=== PATIENT | male | born 1940 | race Caucasian/White ===

== ENCOUNTER → 2017-10-24 06:54 | Outpatient (CLI) | payer OTHER, SELFPAY ==
[2017-10-24 09:01] LABS: Alanine Aminotransferase 32 IU/L (21-72); Albumin 4.6 g/dL (3.5-5.0); Albumin Globulin Ratio 1.4 (1.0-2.8); Alkaline Phosphatase 61 U/L (38-126); Aspartate Aminotransferase 27 IU/L (17-59); BUN Creatinine Ratio 23.6 (6-22); Bilirubin Total 0.6 mg/dL (0.2-1.3); Blood Urea Nitrogen 26 mg/dL (9-20); Calcium 9.8 mg/dL (8.4-10.2); Carbon Dioxide 32 mmol/L (22-32); Chloride 103 mmol/L (98-107); Estimated Glomerular Filt Rate > 60.0 mL/min (>60); Globulin 3.3 g/dL (1.7-4.1); Glucose 112 mg/dL (80-110); HEMOLYSIS < 15 (0-50); Potassium 4.2 mmol/L (3.4-5.1); Sodium 144 mmol/L (137-145); Total Protein 7.9 g/dL (6.3-8.2)
[2017-10-24 09:33] LABS: TSH w/ Reflex to FT4 4.38 uIU/mL (0.47-4.68)
[2017-10-27 09:23] LABS: Lipoprofile NMR SEE SEPERATE REPORT
== END ==
PROVIDERS: PCP Internal Medicine; Visit Provider Specialist
DX: I25.10 Atherosclerotic heart disease of native coronary artery without angina pectoris (principal); E78.5 Hyperlipidemia, unspecified; I10 Essential (primary) hypertension; R20.0 Anesthesia of skin; E03.9 Hypothyroidism, unspecified; K40.90 Unilateral inguinal hernia, without obstruction or gangrene, not specified as recurrent; Z12.5 Encounter for screening for malignant neoplasm of prostate
CPT/HCPCS: 36415; 80053; 83704; 84153; 84443; G0103

== ENCOUNTER → 2017-12-21 09:34 | Outpatient (CLI) | payer OTHER, SELFPAY ==
--- NOTE | 2017-12-21 09:35 | DI.RAD.S_ITS ---
PROCEDURE: XR CHEST 2V INDICATIONS: COUGH TECHNIQUE: 2 views of the chest were acquired. COMPARISON: [facility], , XR CXR 2 VIEW, 12/31/2003, 18:09. FINDINGS: Surgical changes and devices: None. Lungs and pleura: No pleural effusions or pneumothorax. Lungs are clear, aside from multiple calcified bilateral granulomas similar to prior chest radiograph dated 12/31/2003. There is prominent chondrocalcification involving both the right and left anterior first ribs also unchanged.. Mediastinum: Mediastinal contours are normal. Heart size is normal. Bones and chest wall: No suspicious bony abnormalities. Soft tissues appear unremarkable. IMPRESSION: 1. Remote granulomatous changes redemonstrated and prominent costochondral calcification involving the first anterior ribs bilaterally which also is unchanged from prior examination. No source for cough is identified. Dictated by: Alan West [facility] Interpreted: Vladimir Zafar MD on 12/21/2017 at 10:00 Approved by: Vladimir Zafar M.D. on 12/21/2017 at 12:18
== END ==
PROVIDERS: PCP Family Medicine; Visit Provider Family Medicine
DX: R05 Cough (principal)
CPT/HCPCS: 71046

== ENCOUNTER → 2018-09-25 06:57 | Outpatient (CLI) | payer OTHER, SELFPAY ==
[2018-09-25 09:32] LABS: Alanine Aminotransferase 27 IU/L (21-72); Albumin 4.4 g/dL (3.5-5.0); Albumin Globulin Ratio 1.3 (1.0-2.8); Alkaline Phosphatase 67 U/L (38-126); Aspartate Aminotransferase 34 IU/L (17-59); BUN Creatinine Ratio 24.4 (6-22); Bilirubin Total 0.8 mg/dL (0.2-1.3); Blood Urea Nitrogen 22 mg/dL (9-20); Calcium 9.6 mg/dL (8.4-10.2); Carbon Dioxide 30 mmol/L (22-32); Chloride 106 mmol/L (98-107); Estimated Glomerular Filt Rate > 60.0 mL/min (>60); Globulin 3.4 g/dL (1.7-4.1); Glucose 102 mg/dL (80-110); HEMOLYSIS < 15 (0-50); Potassium 4.1 mmol/L (3.4-5.1); Sodium 143 mmol/L (137-145); Total Protein 7.8 g/dL (6.3-8.2)
[2018-09-25 09:57] LABS: Prostate Specific Antigen Scrn 1.37 ng/mL (0.1-4.0)
[2018-09-25 09:58] LABS: Thyroid Stimulating Hormone 4.23 uIU/mL (0.47-4.68)
[2018-09-27 08:31] LABS: Lipoprofile NMR SEE SEPERATE REPORT
== END ==
PROVIDERS: Family Provider Family Medicine; PCP Family Medicine; Visit Provider Specialist
DX: E78.2 Mixed hyperlipidemia (principal); Z12.5 Encounter for screening for malignant neoplasm of prostate; E03.9 Hypothyroidism, unspecified; E78.5 Hyperlipidemia, unspecified
CPT/HCPCS: 36415; 80053; 83704; 84443; G0103

== ENCOUNTER → 2019-11-26 07:10 | Outpatient (CLI) | payer OTHER, SELFPAY ==
[2019-11-26 08:05] LABS: Alanine Aminotransferase 33 IU/L (<50); Albumin 4.6 g/dL (3.5-5.0); Albumin Globulin Ratio 1.2 (1.0-2.8); Alkaline Phosphatase 75 U/L (38-126); Aspartate Aminotransferase 34 IU/L (17-59); Bilirubin Total 0.8 mg/dL (0.2-1.3); Blood Urea Nitrogen 25 mg/dL (9-20); Calcium 9.9 mg/dL (8.4-10.2); Carbon Dioxide 29 mmol/L (22-32); Chloride 105 mmol/L (98-107); Estimated Glomerular Filt Rate > 60.0 mL/min (>60); Globulin 3.7 g/dL (1.7-4.1); Glucose 121 mg/dL (80-110); HEMOLYSIS < 15 (0-50); Potassium 4.3 mmol/L (3.4-5.1); Sodium 141 mmol/L (137-145); Total Protein 8.3 g/dL (6.3-8.2)
[2019-11-26 08:21] LABS: Vitamin D 25 Hydroxy (D3) 45.2 ng/mL (30.0-100.0)
[2019-11-26 08:35] LABS: Prostate Specific Antigen Scrn 1.42 ng/mL (0.1-4.0)
[2019-11-26 08:36] LABS: TSH w/ Reflex to FT4 6.48 uIU/mL (0.47-4.68)
[2019-11-26 09:19] LABS: Free T4, Direct Thyroxine 0.98 ng/dL (0.78-2.19)
[2019-11-28 09:36] LABS: Cholesterol, Total 123 mg/dL (100-199); HDL-Cholesterol 43 mg/dL (>39); HDL-Particle (Total) 33.5 umol/L (>=30.5); Historical Reading Comment: (.); LDL Particle 551 nmol/L (<1000); LDL Size 20.5 nm (>20.5); LDL-Cholsterol 53 mg/dL (0-99); LP-IR Score 43 (<=45); Small LDL- Particle 185 nmol/L (<=527); Triglycerides 135 mg/dL (0-149)
== END ==
PROVIDERS: Family Provider Family Medicine; PCP Family Medicine; Referring Provider Specialist; Visit Provider Specialist
DX: E78.2 Mixed hyperlipidemia (principal); E03.9 Hypothyroidism, unspecified; Z12.5 Encounter for screening for malignant neoplasm of prostate; Z13.21 Encounter for screening for nutritional disorder
CPT/HCPCS: 36415; 80053; 80061; 82306; 83704; 84439; 84443; G0103

== ENCOUNTER → 2019-12-18 10:25 | Outpatient (CLI) | payer OTHER, SELFPAY ==
[2019-12-18 11:55] LABS: Hemoglobin A1C% w Est Avg Glu 5.7 % (4.0-6.0)
== END ==
PROVIDERS: Family Provider Family Medicine; PCP Family Medicine; Referring Provider Family Medicine; Visit Provider Family Medicine
DX: R73.9 Hyperglycemia, unspecified (principal)
CPT/HCPCS: 36415; 83036

== ENCOUNTER 2020-09-25 21:55 | Emergency (ER) | payer OTHER, SELFPAY ==
[2020-09-25 22:05] VITALS: BP 185/86; PULSE 70; O2SAT 97
[2020-09-25 22:07] VITALS: BP 185/86; PULSE 70; RESP 12; TEMP 37; O2SAT 96; BMI 22.7
--- NOTE | 2020-09-25 22:09 | DI.RAD.S_ITS ---
PROCEDURE: XR CHEST 1V INDICATIONS: chest pain TECHNIQUE: One view of the chest was acquired. COMPARISON: [facility], CR, XR CHEST 2V, 12/21/2017, 9:14. FINDINGS: Surgical changes and devices: None. Lungs and pleura: Lungs are clear of acute opacities. Calcified granulomas are stable compared to the prior exams.. No pleural effusions or pneumothorax. Mediastinum: Mediastinal contours appear normal. Heart size is normal. Bones and chest wall: No suspicious bony lesions. Overlying soft tissues appear unremarkable. IMPRESSION: No acute cardiopulmonary disease process. Dictated by: Ligia Lorenzo MD, PhD on 09/26/2020 at 9:52 Approved by: Ligia Lorenzo MD, PhD on 09/26/2020 at 9:56
[2020-09-25 22:34] LABS: Add Manual Diff / Slide Review NO; Basophils Absolute Auto 100 /uL (0-100); Basophils Percent Auto 1.3 % (0-2); Eosinophils Absolute Auto 1000 /uL (0-450); Eosinophils Percent Auto 10.8 % (2-4); Hematocrit 45.9 % (41-53); Hemoglobin 15.9 g/dL (13.5-17.5); Lymphocytes Absolute Auto 3600 /uL (1100-4500); Lymphocytes Percent Auto 39.6 % (25-40); Mean Corpuscular HGB Conc 34.7 % (30-36); Mean Corpuscular Hemoglobin 32.9 PG (26-34); Mean Corpuscular Volume 94.7 fL (80-100); Monocytes Absolute Auto 800 /uL (0-900); Monocytes Percent Auto 8.4 % (3-14); Neutrophils Absolute Auto 3600 /uL (1500-7000); Neutrophils Percent Auto 39.9 % (50-75); Platelet Count 250 X10^3/uL (150-400); Red Blood Cell Count 4.84 X10^6/uL (4.5-5.9); White Blood Cell Count 9.1 X10^3/uL (4.5-11.0)
[2020-09-25 22:35] LABS: Alanine Aminotransferase 33 IU/L (<50); Albumin 4.2 g/dL (3.5-5.0); Albumin Globulin Ratio 1.4 (1.0-2.8); Alkaline Phosphatase 52 U/L (38-126); Aspartate Aminotransferase 39 IU/L (17-59); BUN Creatinine Ratio 22.7 (6-22); Bilirubin Total 0.4 mg/dL (0.2-1.3); Blood Urea Nitrogen 20 mg/dL (9-20); Calcium 9.2 mg/dL (8.4-10.2); Carbon Dioxide 29 mmol/L (22-32); Chloride 106 mmol/L (98-107); Creatine Kinase 110 U/L (55-170); Estimated Glomerular Filt Rate > 60.0 mL/min (>60); Globulin 3.1 g/dL (1.7-4.1); Glucose 114 mg/dL (80-110); Lipase 86 U/L (23-300); Sodium 142 mmol/L (137-145); Total Protein 7.3 g/dL (6.3-8.2)
[2020-09-25 22:42] LABS: Potassium 3.9 mmol/L (3.4-5.1)
[2020-09-25 22:47] LABS: Troponin I < 0.012 ng/mL (0.01-0.034)
[2020-09-25 22:50] LABS: CKMB % Relative Index 1.5 % (1.5-5.0); Creatine Kinase MB 1.67 ng/mL (<2.37)
[2020-09-25 22:53] LABS: HEMOLYSIS 49 (0-50)
[2020-09-25 22:55] VITALS: BP 171/79; PULSE 65; RESP 19; O2SAT 95
[2020-09-25 22:59] VITALS: BP 171/79; PULSE 67; RESP 12; O2SAT 98
[2020-09-25 23:00] VITALS: BP 150/71; PULSE 65; RESP 13; O2SAT 94
[2020-09-26] VITALS: BP 152/74; PULSE 64; RESP 15; O2SAT 94
[2020-09-26 01:00] VITALS: BP 168/75; PULSE 64; RESP 13; O2SAT 96
--- NOTE | 2020-09-26 01:27 | ED_ITS ---
HPI - General Adult General Chief complaint: Dizziness Stated complaint: dizzy, sweats, irregular heartbeats Time Seen by Provider: 09/26/20 01:27 Source: patient Mode of arrival: Ambulatory History of Present Illness HPI narrative: 80-year-old gentleman with a history of hypertension, coronary artery disease post stenting, hypothyroidism who presents with an episode of significant vertigo while he was watching TV at 9:30 a.m. this evening. I was associated with diaphoresis and he has a electronic watch that he uses to keep track of his heart rhythms he noted increased PVCs and quite a bit of artifact. He had increasing weakness and then the episode resolved fairly quickly. He states he has a similar episode of vertigo a number of years ago. The symptoms that he had that led to eventual stenting of coronary arteries were a mild burning center chest without any dizziness. He denies any fevers, cough, chills. He describes no significant abdominal pain constipation, diarrhea or dysuria. Related Data Home Medications Medication Instructions Recorded Confirmed aspirin 81 mg tablet,delayed 81 mg PO DAILY 12/21/17 12/25/18 release cholecalciferol (vitamin D3) 25 1,000 unit PO DAILY 12/21/17 12/25/18 mcg (1,000 unit) capsule cyanocobalamin (vitamin B-12) 1,000 mcg PO DAILY 12/21/17 12/25/18 1,000 mcg tablet metoprolol tartrate 25 mg tablet 12.5 mg PO .qd tab 12/21/17 12/25/18 [id number] acid 0.4 1 tab PO DAILY 12/21/17 12/25/18 mg-lycopene 300 mcg-lutein 250 mcg tablet simvastatin 40 mg tablet 40 mg PO BEDTIME 12/21/17 12/25/18 Previous Rx's Medication Instructions Recorded omega-3 fatty acids 1,000 mg 1,000 mg PO DAILY #90 cap 12/21/17 capsule levothyroxine 25 mcg tablet 25 mcg PO DAILY #90 tab 12/17/19 Allergies Allergy/AdvReac Type Severity Reaction Status Date / Time crab AdvReac Severe vomiting Verified 09/25/20 22:09 Review of Systems Review of Systems Narrative: Remainder of complete review of systems is otherwise unremarkable except for that included in the HPI. Patient History Medical History Chronic cough Coronary artery disease (~2010) Gall stones (~2015) Hearing loss Hemorrhoid (~1979) Hyperlipidemia (~1995) Hypothyroidism (~2011) Measles Mumps Skin cancer (~2010) Tinnitus (~1989) Vertigo (~1985) Vision disorder Surgical History H/O angioplasty History of hernia repair (~2016) History of sinus surgery Family History Father No problems noted. Mother Stroke Brother Heart disease Sister No problems noted. Grandfather No problems noted. Social History marital status: household members: spouse lives independently: Yes occupational status: other (retired 1995, customer service analyst/automotive generator repairer) Smoking Status: Former smoker Tobacco: How many years used: 6 alcohol intake: never substance use type: does not use Smoking Status: Former smoker Substance Use Type: does not use Exam Narrative Exam Narrative: General: Healthy appearing, in no acute distress. Able to give a complete and coherent history. Well-nourished well-developed HEENT: Moist mucous membranes, normal sclera with reactive pupils, tympanic membranes are pearly ledesma bilaterally Neck: supple Respiratory: Lungs are clear to auscultation, no wheezing no rales no rhonchi. Full and symmetrical air movement Cardiac: Regular rate and rhythm no murmurs no bruits Abdomen: Soft, nontender, good bowel tones, no flank pain Skin: Warm and dry, no rashes Neurologic: Grossly neurologically intact with no obvious asymmetries or abnormalities Extremities: No trauma, well perfused Psych: Cooperative, appropriate insight and affect Initial Vital Signs Initial Vital Signs: Vital Signs Pulse Rate 70 09/25/20 22:05 Blood Pressure 185/86 H 09/25/20 22:05 Pulse Oximetry 97 09/25/20 22:05 Course Orders Ordered: ED Orders 09/25/20 22:09 XR chest 1V Stat EKG-12 Lead Stat 09/25/20 22:18 Complete Blood Count AUTO DIFF Stat Comprehensive Metabolic Panel Stat Lipase Stat Troponin & CK Cardiac Panel Stat 09/26/20 01:40 Troponin I Stat Vital Signs Vital signs: Vital Signs - 8 hr 09/25/20 22:07 09/25/20 22:59 Temperature 98.6 F Pulse Rate 70 67 Respiratory Rate 12 12 Blood Pressure 185/86 H 171/79 H Pulse Oximetry 96 98 Medical Decision Making Medical Records Medical records reviewed: Yes I reviewed the patient's medical records. Lab Data Lab results reviewed: Yes I reviewed the patient's lab results. Result diagrams: 09/25/20 22:18 09/25/20 22:18 Labs: Lab Results 09/25/20 09/25/20 09/26/20 Range/Units 22:18 22:18 01:40 WBC 9.1 (4.5-11.0) X10^3/uL RBC 4.84 (4.5-5.9) X10^6/uL Hgb 15.9 (13.5-17.5) g/dL Hct 45.9 (41-53) % MCV 94.7 (80-100) fL MCH 32.9 (26-34) PG MCHC 34.7 (30-36) % RDW 14.0 (11.6-14.8) % Plt Count 250 (150-400) X10^3/uL Neut % (Auto) 39.9 L (50-75) % Lymph % (Auto) 39.6 (25-40) % [place] % (Auto) 8.4 (3-14) % Eos % (Auto) 10.8 H (2-4) % Baso % (Auto) 1.3 (0-2) % Neut # (Auto) 3600 (9216-6449) /uL Lymph # (Auto) 3600 (8398-3271) /uL [place] # (Auto) 800 (0-900) /uL Eos # (Auto) 1000 H (0-450) /uL Baso # (Auto) 100 (0-100) /uL Sodium 142 (137-145) mmol/L Potassium 3.9 (3.4-5.1) mmol/L Chloride 106 (98-107) mmol/L Carbon Dioxide 29 (22-32) mmol/L BUN 20 (9-20) mg/dL Creatinine 0.88 (0.66-1.25) mg/dL Estimated GFR > 60.0 (>60) mL/min BUN/Creatinine Ratio 22.7 H (6-22) Glucose 114 H (80-110) mg/dL Calcium 9.2 (8.4-10.2) mg/dL Total Bilirubin 0.4 (0.2-1.3) mg/dL AST 39 (17-59) IU/L ALT 33 (<50) IU/L Alkaline Phosphatase 52 (38-126) U/L Total Creatine Kinase 110 (55-170) U/L CK-MB (CK-2) 1.67 (<2.37) ng/mL CK-MB (CK-2) Rel Index 1.5 (1.5-5.0) % Troponin I < 0.012 < 0.012 (0.01-0.034) ng/mL Total Protein 7.3 (6.3-8.2) g/dL Albumin 4.2 (3.5-5.0) g/dL Globulin 3.1 (1.7-4.1) g/dL Albumin/Globulin Ratio 1.4 (1.0-2.8) Lipase 86 (23-300) U/L ECG Data Interpretation: Sinus rhythm at a rate of 64 Normal axis, normal intervals No acute ischemic changes MDM Narrative Medical decision making narrative: 80-year-old gentleman with an episode of acute vertigo lasting approximately half an hour associated with diaphoresis and increased PVCs. Symptoms are entirely resolved at this point. There is no clinical evidence of stroke. EKG is unremarkable and troponin x2 is equally reassuring. There is no sign of infection or electrolyte abnormalities. At this point I do not have a reason to justify hospitalization and the patient fe els well. Questions are answered and he is discharged home. Discharge Plan Departure Patient Disposition: Home Clinical Impression: Vertigo Instructions: DI for Dizziness-Nonvertigo Activity Restrictions/Additional Instructions: Thank you for coming in today Your workup was reassuring. There is no evidence of acute stroke, heart attack or heart attack like syndrome, no infection and no dehydration or kidney abnormalities. Please continue all of your usual medications. If you have any recurrent symptoms or changing issues, please return to the ER and I am happy to re-evaluate. Prescriptions: No Action levothyroxine 25 mcg tablet 25 mcg PO DAILY Qty: 90 RF: 3 simvastatin 40 mg tablet 40 mg PO BEDTIME RF: 0 metoprolol tartrate 25 mg tablet 12.5 mg PO .qd RF: 0 omega-3 fatty acids [Fish Oil Concentrate] 1,000 mg capsule 1,000 mg PO DAILY Qty: 90 RF: 0 cyanocobalamin (vitamin B-12) [Vitamin B-12] 1,000 mcg tablet 1,000 mcg PO DAILY RF: 0 aspirin [Adult Low Dose Aspirin] 81 mg tablet,delayed release (DR/EC) 81 mg PO DAILY RF: 0 cholecalciferol (vitamin D3) 1,000 unit capsule 1,000 unit PO DAILY RF: 0 uainatlg-sqe-UW-lycopen-lutein [Centrum Silver] 0.4-300-250 mg-mcg-mcg tablet 1 tab PO DAILY RF: 0 Referrals: Teri Rodriguez DO [Primary Care Provider] -
[2020-09-26 01:30] VITALS: BP 163/87; PULSE 75; RESP 35; O2SAT 95
[2020-09-26 02:00] VITALS: BP 168/81; PULSE 64; RESP 34; O2SAT 95
[2020-09-26 02:14] LABS: Troponin I < 0.012 ng/mL (0.01-0.034)
[2020-09-26 02:30] VITALS: BP 142/73; PULSE 61; RESP 15; O2SAT 96
== END 2020-09-26 03:06 | disposition home or self-care (01) ==
PROVIDERS: Emergency Provider Emergency Medicine; Family Provider Family Medicine; PCP Family Medicine
DX: R42 Dizziness and giddiness (principal); R53.1 Weakness; R07.9 Chest pain, unspecified
CPT/HCPCS: 36415; 71045; 80053; 82550; 82553; 83690; 84484; 85025; 93005; 93010; 99283; 99284

== ENCOUNTER → 2020-10-27 06:51 | Outpatient (CLI) | payer OTHER, SELFPAY ==
[2020-10-27 08:31] LABS: Alanine Aminotransferase 30 IU/L (<50); Albumin 4.2 g/dL (3.5-5.0); Albumin Globulin Ratio 1.3 (1.0-2.8); Alkaline Phosphatase 65 U/L (38-126); Aspartate Aminotransferase 32 IU/L (17-59); BUN Creatinine Ratio 25.8 (6-22); Bilirubin Total 0.6 mg/dL (0.2-1.3); Blood Urea Nitrogen 24 mg/dL (9-20); Calcium 9.5 mg/dL (8.4-10.2); Carbon Dioxide 28 mmol/L (22-32); Chloride 105 mmol/L (98-107); Cholesterol 114 mg/dL (140-199); Estimated Glomerular Filt Rate > 60.0 mL/min (>60); Globulin 3.3 g/dL (1.7-4.1); Glucose 113 mg/dL (80-110); HDL Cholesterol 41 mg/dL (40-60); HEMOLYSIS < 15 (0-50); LDL Cholesterol Calculated 43 mg/dL (<100); Potassium 3.7 mmol/L (3.4-5.1); Sodium 140 mmol/L (137-145); Total Protein 7.5 g/dL (6.3-8.2); Triglycerides 149 mg/dL (35-150)
[2020-10-27 08:59] LABS: TSH w/ Reflex to FT4 3.92 uIU/mL (0.47-4.68)
== END ==
PROVIDERS: Family Provider Family Medicine; PCP Family Medicine; Referring Provider Specialist; Visit Provider Specialist
DX: I10 Essential (primary) hypertension (principal); I49.3 Ventricular premature depolarization; E78.00 Pure hypercholesterolemia, unspecified; E03.9 Hypothyroidism, unspecified
CPT/HCPCS: 36415; 80053; 80061; 83735; 84443

== ENCOUNTER → 2021-02-13 08:43 | Outpatient (CLI) | payer MEDICARE, SELFPAY ==
[2021-02-13] MEDS: COVID-19 VACC #3, MRNA(MOD) 50 MCG/0.25 ML VIAL IM (08:47)
== END ==
PROVIDERS: Family Provider Family Medicine; PCP Family Medicine; Visit Provider Internal Medicine
DX: Z23 Encounter for immunization (principal)
CPT/HCPCS: 0013A; 91301

== ENCOUNTER → 2021-10-26 06:56 | Outpatient (CLI) | payer OTHER, SELFPAY ==
[2021-10-26 08:15] LABS: Alanine Aminotransferase 26 IU/L (<50); Albumin 4.3 g/dL (3.5-5.0); Albumin Globulin Ratio 1.5 (1.0-2.8); Alkaline Phosphatase 59 U/L (38-126); Aspartate Aminotransferase 28 IU/L (17-59); BUN Creatinine Ratio 26.1 (6-22); Bilirubin Total 0.5 mg/dL (0.2-1.3); Blood Urea Nitrogen 23 mg/dL (9-20); Calcium 9.3 mg/dL (8.4-10.2); Carbon Dioxide 24 mmol/L (22-32); Chloride 106 mmol/L (98-107); Estimated Glomerular Filt Rate > 60 mL/min (>60); Globulin 2.9 g/dL (1.7-4.1); Glucose 114 mg/dL (80-110); HEMOLYSIS < 15 (0-50); Potassium 4.5 mmol/L (3.4-5.1); Sodium 141 mmol/L (137-145); Total Protein 7.2 g/dL (6.3-8.2)
[2021-10-29 08:35] LABS: Cholesterol, Total 105 mg/dL (100-199); HDL-Cholesterol 44 mg/dL (>39); HDL-Particle (Total) 32.5 umol/L (>=30.5); LDL Particle 644 nmol/L (<1000); LDL Size 20.1 nm (>20.5); LDL-Cholsterol 44 mg/dL (0-99); LP-IR Score 47 (<=45); Small LDL- Particle 334 nmol/L (<=527); Triglycerides 89 mg/dL (0-149)
== END ==
PROVIDERS: Family Provider Family Medicine; PCP Family Medicine; Referring Provider Specialist; Visit Provider Specialist
DX: I10 Essential (primary) hypertension (principal); E78.00 Pure hypercholesterolemia, unspecified
CPT/HCPCS: 36415; 80053; 80061; 83704; 83735

== ENCOUNTER → 2022-01-26 10:18 | Outpatient (CLI) | payer OTHER, SELFPAY ==
[2022-01-26 12:48] LABS: Add Manual Diff / Slide Review NO; Basophils Absolute Auto 100 /uL (0-100); Basophils Percent Auto 0.6 % (0-2); Eosinophils Absolute Auto 400 /uL (0-450); Eosinophils Percent Auto 4.2 % (2-4); Hematocrit 45.9 % (41-53); Hemoglobin 16.2 g/dL (13.5-17.5); Lymphocytes Absolute Auto 2200 /uL (1100-4500); Lymphocytes Percent Auto 22.8 % (25-40); Mean Corpuscular HGB Conc 35.3 % (30-36); Mean Corpuscular Hemoglobin 33.3 PG (26-34); Mean Corpuscular Volume 94.4 fL (80-100); Monocytes Absolute Auto 700 /uL (0-900); Monocytes Percent Auto 6.7 % (3-14); Neutrophils Absolute Auto 6500 /uL (1500-7000); Neutrophils Percent Auto 65.7 % (50-75); Platelet Count 238 X10^3/uL (150-400); Red Blood Cell Count 4.86 X10^6/uL (4.5-5.9); Red Cell Distribution Width 13.5 % (11.6-14.8); White Blood Cell Count 9.9 X10^3/uL (4.5-11.0)
[2022-01-26 12:58] LABS: Alanine Aminotransferase 37 IU/L (<50); Albumin 4.4 g/dL (3.5-5.0); Albumin Globulin Ratio 1.3 (1.0-2.8); Alkaline Phosphatase 60 U/L (38-126); Aspartate Aminotransferase 36 IU/L (17-59); BUN Creatinine Ratio 30.3 (6-22); Bilirubin Total 0.4 mg/dL (0.2-1.3); Blood Urea Nitrogen 27 mg/dL (9-20); Calcium 9.5 mg/dL (8.4-10.2); Carbon Dioxide 28 mmol/L (22-32); Chloride 104 mmol/L (98-107); Estimated Glomerular Filt Rate > 60 mL/min (>60); Globulin 3.5 g/dL (1.7-4.1); Glucose 132 mg/dL (80-110); HEMOLYSIS 18 (0-50); Potassium 5.1 mmol/L (3.4-5.1); Sodium 144 mmol/L (137-145); Total Protein 7.9 g/dL (6.3-8.2)
[2022-01-26 13:34] LABS: TSH w/ Reflex to FT4 3.25 uIU/mL (0.47-4.68)
== END ==
PROVIDERS: Family Provider Family Medicine; PCP Family Medicine; Referring Provider Family Medicine; Visit Provider Family Medicine
DX: R10.9 Unspecified abdominal pain (principal); E03.9 Hypothyroidism, unspecified
CPT/HCPCS: 36415; 80053; 84443; 85025

== ENCOUNTER → 2022-02-04 08:57 | Outpatient (CLI) | payer OTHER, SELFPAY ==
--- NOTE | 2022-02-04 08:58 | DI.CT.S_ITS ---
PROCEDURE: CT ABDOMEN PELVIS W CON INDICATIONS: change in stool caliber, weight loss TECHNIQUE: After the administration of oral and IV contrast, axial sections were acquired from the lung bases to the pubic symphysis. Coronal and sagittal reformats were performed. For radiation dose reduction, the following was used: automated exposure control, adjustment of mA and/or kV according to patient size. COMPARISON: [facility], CT, ABDOMEN/PELVIS WITH CONTRAST, 09/09/2015, 22:16. CT, KIDNEY/ URETER/BLADDER, 10/08/2014, 2:59. FINDINGS: Image quality: Excellent. Lung bases: There are calcified granulomas in lung bases. Heart: No significant findings. ABDOMEN: Liver: A calcific focus in liver is compatible with an old granuloma. Moderate hepatic steatosis. Gallbladder: Unremarkable. Biliary ducts: Unremarkable. Pancreas: Unremarkable. Spleen: Multiple calcified granulomas in spleen.. Adrenal Glands: Unremarkable. Kidneys and Ureters: Unremarkable. Stomach and Bowel: Stomach, small bowel loops, and colon are normal in caliber. Diverticulosis without diverticulitis. Peritoneum: No abnormal intraperitoneal fluid. No free air. Ventral Wall: No hernia. Abdominal Nodes: No retroperitoneal or mesenteric adenopathy by size criteria. Vessels: Aorta and inferior vena cava are normal in size. PELVIS: Pelvic Organs: Prostate is enlarged. Bladder: Unremarkable. Pelvic Nodes: No enlarged lymph nodes. Miscellaneous: No inguinal hernias are seen. Bones: Unremarkable. IMPRESSION: 1. No acute abnormalities in abdomen or pelvis. Please consider colonoscopy in light of clinical symptoms. 2. Diverticulosis without diverticulitis. 3. Remote granulomatous disease in both in spleen and liver, as well as lungs. 4. Hepatic steatosis. 5. Enlarged prostate. Dictated by: Luis Fontaine M.D. on 02/04/2022 at 17:18 Approved by: Luis Fontaine M.D. on 02/04/2022 at 17:25
== END ==
PROVIDERS: Family Provider Family Medicine; PCP Family Medicine; Referring Provider Family Medicine; Visit Provider Family Medicine
DX: R19.5 Other fecal abnormalities (principal); K57.90 Diverticulosis of intestine, part unspecified, without perforation or abscess without bleeding; K76.0 Fatty (change of) liver, not elsewhere classified; N40.0 Benign prostatic hyperplasia without lower urinary tract symptoms; D71 Functional disorders of polymorphonuclear neutrophils
CPT/HCPCS: 74177; Q9967

== ENCOUNTER → 2022-03-31 06:48 | Outpatient (CLI) | payer OTHER, SELFPAY ==
[2022-03-31 08:35] LABS: BUN Creatinine Ratio 26.7 (6-22); Blood Urea Nitrogen 24 mg/dL (9-20); Calcium 9.2 mg/dL (8.4-10.2); Carbon Dioxide 25 mmol/L (22-32); Chloride 104 mmol/L (98-107); Estimated Glomerular Filt Rate > 60 mL/min (>60); Glucose 110 mg/dL (80-110); HEMOLYSIS < 15 (0-50); Potassium 4.3 mmol/L (3.4-5.1); Sodium 140 mmol/L (137-145)
[2022-04-01 10:22] LABS: PSA Free % 39.3 % (.); PSA, Total 1.4 ng/mL (0.0-4.0)
== END ==
PROVIDERS: Family Provider Family Medicine; PCP Family Medicine; Referring Provider Family Medicine; Visit Provider Family Medicine
DX: N40.0 Benign prostatic hyperplasia without lower urinary tract symptoms (principal); I10 Essential (primary) hypertension
CPT/HCPCS: 36415; 80048; 84153; 84154

== ENCOUNTER → 2022-10-25 08:01 | Outpatient (CLI) | payer OTHER, SELFPAY ==
[2022-10-25 10:44] LABS: Alanine Aminotransferase 32 IU/L (<50); Albumin 4.3 g/dL (3.5-5.0); Albumin Globulin Ratio 1.5 (1.0-2.8); Alkaline Phosphatase 64 U/L (38-126); Aspartate Aminotransferase 29 IU/L (17-59); BUN Creatinine Ratio 19.6 (6-22); Bilirubin Total 0.7 mg/dL (0.2-1.3); Blood Urea Nitrogen 20 mg/dL (9-20); Calcium 9.4 mg/dL (8.4-10.2); Carbon Dioxide 30 mmol/L (22-32); Chloride 104 mmol/L (98-107); Cholesterol 117 mg/dL (140-199); Estimated Glomerular Filt Rate > 60 mL/min (>60); Globulin 2.9 g/dL (1.7-4.1); Glucose 111 mg/dL (80-110); HDL Cholesterol 42 mg/dL (40-60); HEMOLYSIS < 15 (0-50); LDL Cholesterol Calculated 51 mg/dL (<100); Potassium 4.2 mmol/L (3.4-5.1); Sodium 140 mmol/L (137-145); Total Protein 7.2 g/dL (6.3-8.2); Triglycerides 119 mg/dL (35-150)
== END ==
PROVIDERS: Family Provider Family Medicine; PCP Family Medicine; Referring Provider Specialist; Visit Provider Specialist
DX: E78.00 Pure hypercholesterolemia, unspecified (principal)
CPT/HCPCS: 36415; 80053; 80061

== ENCOUNTER → 2023-07-26 10:49 | Outpatient (CLI) | payer OTHER, SELFPAY ==
[2023-07-26 12:17] LABS: Influenza A - CEPHEID Flu A NEGATIVE (NEGATIVE); Influenza B - CEPHEID Flu B NEGATIVE (NEGATIVE); Respiratory Syncytial Virus Negative (Negative)
[2023-07-26 12:18] LABS: COVID-19 CEPHEID 4-PLEX PCR Negative (Negative)
== END ==
PROVIDERS: Family Provider Family Medicine; PCP Student in an Organized Health Care Education/Training Program; Visit Provider Physician Assistant
DX: R30.0 Dysuria (principal); U07.1 COVID-19
CPT/HCPCS: 0241U; 87077; 87086; 87186

== ENCOUNTER → 2023-08-21 14:47 | Outpatient (CLI) | payer OTHER, SELFPAY | PROVIDERS: Family Provider Family Medicine; PCP Student in an Organized Health Care Education/Training Program; Visit Provider Physician Assistant Medical | DX: R10.9 Unspecified abdominal pain (principal) | CPT/HCPCS: 87077; 87086; 87186 ==

== ENCOUNTER → 2023-09-16 10:02 | Outpatient (CLI) | payer OTHER, SELFPAY ==
[2023-09-16 11:11] LABS: Appearance Urine UA CLEAR; Bilirubin Urine UA NEGATIVE (NEGATIVE); Color Urine UA YELLOW; Glucose Urine UA NEGATIVE (Negative); Ketones Urine UA NEGATIVE (NEGATIVE); Leukocyte Esterase Urine UA 1+ (NEGATIVE); Nitrite Urine UA POSITIVE (Negative); Occult Blood Urine UA TRACE-INTACT (Negative); Protein Urine UA NEGATIVE (Negative); Urobilinogen Urine UA 0.2 E.U./dL (0.2); pH Urine UA 5.5 (4.5-8.0)
[2023-09-16 11:20] LABS: Bacteria Urine Many (>30); RBC Urine 1-5/HPF (0-5/HPF); Squamous Epithelial Cell Urine 0-1 /HPF (0-5/HPF); Urine Volume 10mL (spun); WBC Urine 30-100/HPF (0-5/HPF)
== END ==
PROVIDERS: Family Provider Family Medicine; PCP Student in an Organized Health Care Education/Training Program; Visit Provider Student in an Organized Health Care Education/Training Program
DX: N39.0 Urinary tract infection, site not specified (principal)
CPT/HCPCS: 81001; 87077; 87086; 87186

== ENCOUNTER → 2023-09-16 10:33 | Outpatient (CLI) | payer OTHER, SELFPAY ==
--- NOTE | 2023-09-16 10:35 | DI.CT.S_ITS ---
PROCEDURE: CT KIDNEY URETER BLADDER (KUB) INDICATIONS: STONE PROTOCOL TECHNIQUE: Axial sections were acquired from the lung bases to the pubic symphysis. Coronal and sagittal reformats were performed. For radiation dose reduction, the following was used: automated exposure control, adjustment of mA and/or kV according to patient size. COMPARISON: [facility], CT, KIDNEY/ URETER/BLADDER, 10/08/2014, 2:59. FINDINGS: Image quality: Diagnostic. Lower Chest: Calcified granuloma. URINARY: Right Kidney: No stones or hydronephrosis. Right Ureter: No hydroureter. Left Kidney: No stones or hydronephrosis. Left Ureter: No hydroureter. Bladder: Normal wall thickness. No stones. ABDOMEN: Liver: No contour-deforming solid mass. Calcified granuloma. Gallbladder: Cholelithiasis without wall thickening or adjacent fat stranding to suggest acute cholecystitis. Biliary ducts: No biliary dilation. Pancreas: No ductal dilation. Spleen: Size is within normal limits. Calcified granuloma. Adrenal Glands: No adrenal nodules. Stomach and Bowel: Normal colonic caliber, without significant wall thickening. Colonic diverticulosis without evidence of diverticulitis. Normal appendix. Peritoneum: No abnormal intraperitoneal fluid. No free air. Ventral Wall: No hernia. Abdominal Nodes: No enlarged retroperitoneal or mesenteric lymph nodes. Vessels: Aorta and inferior vena cava are normal in size. PELVIS: Pelvic Organs: Unremarkable. Pelvic Nodes: Unremarkable. Miscellaneous: No inguinal hernias are seen. Bones: Moderate spinal canal narrowing at L2-3 due to disc herniation and facet hypertrophy. IMPRESSION: No obstructing stones or hydronephrosis. Cholelithiasis without wall thickening or adjacent fat stranding to suggest acute cholecystitis. Colonic diverticulosis without evidence of diverticulitis. Normal appendix. Sequela of granulomatous disease. Moderate spinal canal narrowing at L2-3 due to disc herniation and facet hypertrophy. Dictated by: Pietro George M.D. on 09/16/2023 at 11:02 Approved by: Pietro George M.D. on 09/16/2023 at 11:04
[2023-09-16 13:25] LABS: Add Manual Diff / Slide Review NO; Basophils Absolute Auto 100 /uL (0-100); Basophils Percent Auto 0.5 % (0-2); Eosinophils Absolute Auto 200 /uL (0-450); Eosinophils Percent Auto 2.2 % (2-4); Hematocrit 47.5 % (41-53); Hemoglobin 16.4 g/dL (13.5-17.5); Lymphocytes Absolute Auto 2300 /uL (1100-4500); Lymphocytes Percent Auto 21.7 % (25-40); Mean Corpuscular HGB Conc 34.5 % (30-36); Mean Corpuscular Hemoglobin 32.6 PG (26-34); Mean Corpuscular Volume 94.4 fL (80-100); Monocytes Absolute Auto 900 /uL (0-900); Monocytes Percent Auto 8.3 % (3-14); Neutrophils Absolute Auto 7100 /uL (1500-7000); Neutrophils Percent Auto 67.3 % (50-75); Platelet Count 330 X10^3/uL (150-400); Red Blood Cell Count 5.03 X10^6/uL (4.5-5.9); Red Cell Distribution Width 13.9 % (11.6-14.8); White Blood Cell Count 10.6 X10^3/uL (4.5-11.0)
[2023-09-16 13:38] LABS: Alanine Aminotransferase 30 IU/L (<50); Albumin 4.6 g/dL (3.5-5.0); Albumin Globulin Ratio 1.5 (1.0-2.8); Alkaline Phosphatase 74 U/L (38-126); Aspartate Aminotransferase 33 IU/L (17-59); BUN Creatinine Ratio 26.7 (6-22); Bilirubin Total 0.5 mg/dL (0.2-1.3); Blood Urea Nitrogen 24 mg/dL (9-20); Calcium 9.9 mg/dL (8.4-10.2); Carbon Dioxide 29 mmol/L (22-32); Chloride 106 mmol/L (98-107); Estimated Glomerular Filt Rate > 60 mL/min (>60); Glucose 127 mg/dL (80-110); HEMOLYSIS < 15 (0-50); Potassium 5.2 mmol/L (3.4-5.1); Sodium 142 mmol/L (137-145); Total Protein 7.6 g/dL (6.3-8.2)
[2023-09-16 14:07] LABS: Prostate Specific Antigen 3.64 ng/mL (0.10-4.00)
== END ==
PROVIDERS: Family Provider Family Medicine; PCP Student in an Organized Health Care Education/Training Program; Referring Provider Student in an Organized Health Care Education/Training Program; Visit Provider Student in an Organized Health Care Education/Training Program
DX: N39.0 Urinary tract infection, site not specified (principal); R31.9 Hematuria, unspecified; R10.9 Unspecified abdominal pain; K80.20 Calculus of gallbladder without cholecystitis without obstruction; K57.90 Diverticulosis of intestine, part unspecified, without perforation or abscess without bleeding; M48.061 Spinal stenosis, lumbar region without neurogenic claudication; M51.36 Other intervertebral disc degeneration, lumbar region; M47.816 Spondylosis without myelopathy or radiculopathy, lumbar region
CPT/HCPCS: 36415; 74176; 80053; 81001; 84153; 85025; 87077; 87086; 87186

== ENCOUNTER → 2023-10-12 06:54 | Outpatient (CLI) | payer OTHER, SELFPAY ==
[2023-10-16 13:36] LABS: Cholesterol, Total 143 mg/dL (100-199); HDL-Cholesterol 47 mg/dL (>39); HDL-Particle (Total) 34.2 umol/L (>=30.5); Historical Reading Comment: (.); LDL Particle 740 nmol/L (<1000); LDL Size 20.3 nm (>20.5); LDL-Cholsterol 67 mg/dL (0-99); LP-IR Score 69 (<=45); Small LDL- Particle 284 nmol/L (<=527); Triglycerides 175 mg/dL (0-149)
== END ==
PROVIDERS: Family Provider Family Medicine; PCP Student in an Organized Health Care Education/Training Program; Referring Provider Specialist; Visit Provider Specialist
DX: E78.00 Pure hypercholesterolemia, unspecified (principal)
CPT/HCPCS: 36415; 80061; 83704

== ENCOUNTER → 2024-06-15 06:49 | Outpatient (CLI) | payer OTHER, SELFPAY ==
[2024-06-15 07:32] LABS: Hematocrit 47.9 % (41-53); Hemoglobin 16.6 g/dL (13.5-17.5); Mean Corpuscular HGB Conc 34.6 % (30-36); Mean Corpuscular Volume 95.3 fL (80-100); Platelet Count 266 X10^3/uL (150-400); Red Blood Cell Count 5.03 X10^6/uL (4.5-5.9); Red Cell Distribution Width 13.7 % (11.6-14.8); White Blood Cell Count 9.7 X10^3/uL (4.5-11.0)
[2024-06-15 07:48] LABS: Alanine Aminotransferase 29 IU/L (<50); Albumin 4.6 g/dL (3.5-5.0); Albumin Globulin Ratio 1.6 (1.0-2.8); Alkaline Phosphatase 69 U/L (38-126); Aspartate Aminotransferase 35 IU/L (17-59); Bilirubin Total 0.8 mg/dL (0.2-1.3); Blood Urea Nitrogen 25 mg/dL (9-20); Calcium 9.8 mg/dL (8.4-10.2); Carbon Dioxide 25 mmol/L (22-32); Chloride 104 mmol/L (98-107); Estimated Glomerular Filt Rate > 60 mL/min (>60); Globulin 2.8 g/dL (1.7-4.1); Glucose 126 mg/dL (80-110); HEMOLYSIS < 15 (0-50); Potassium 4.1 mmol/L (3.4-5.1); Sodium 139 mmol/L (137-145); Total Protein 7.4 g/dL (6.3-8.2)
[2024-06-15 08:20] LABS: Thyroid Stimulating Hormone 3.82 uIU/mL (0.47-4.68)
[2024-06-18 08:09] LABS: Cholesterol, Total 123 mg/dL (100-199); HDL-Cholesterol 48 mg/dL (>39); HDL-Particle (Total) 35.5 umol/L (>=30.5); LDL Particle 762 nmol/L (<1000); LDL Size 20.1 nm (>20.5); LDL-Cholsterol 55 mg/dL (0-99); LP-IR Score 56 (<=45); Small LDL- Particle 527 nmol/L (<=527); Triglycerides 108 mg/dL (0-149)
== END ==
PROVIDERS: PCP Student in an Organized Health Care Education/Training Program; Referring Provider Specialist; Visit Provider Specialist
DX: I10 Essential (primary) hypertension (principal); E78.00 Pure hypercholesterolemia, unspecified; I49.3 Ventricular premature depolarization
CPT/HCPCS: 36415; 80053; 80061; 83704; 83735; 84443; 85027